=== PATIENT | female | born 1990 | race Caucasian/White ===

== ENCOUNTER 2017-02-24 21:46 | Emergency (ER) | payer OTHER | END 2017-02-25 02:19 | disposition left against medical advice (07) | LOC: ER 21:46 | DX: Z53.21 Procedure and treatment not carried out due to patient leaving prior to being seen by health care provider (principal) | CPT/HCPCS: 99211 ==

== ENCOUNTER 2017-03-10 22:46 | Emergency (ER) | payer OTHER ==
[2017-03-11 00:53] LABS: URINE BILIRUBIN NEGATIVE (NEGATIVE); URINE BLOOD NEGATIVE (NEGATIVE); URINE GLUCOSE (UA) NORMAL (NORMAL); URINE KETONE NEGATIVE (NEGATIVE); URINE LEUKOCYTE ESTERASE 1+ (NEGATIVE); URINE NITRATE NEGATIVE (NEGATIVE); URINE PROTEIN TRACE (NEGATIVE)
[2017-03-11 01:16] LABS: URINE AMORPHOUS SEDIMENT 1+; URINE BACTERIA 1+ (NONE SEEN); URINE RBC 0-5 /[HPF] (0-2); URINE WBC 0-5 /[HPF] (0-5)
== END 2017-03-11 02:25 | disposition home or self-care (01) ==
LOC: ER 22:46
PROVIDERS: Emergency Medicine
DX: J06.9 Acute upper respiratory infection, unspecified (principal); R10.31 Right lower quadrant pain; J02.9 Acute pharyngitis, unspecified; R05 Cough; F17.210 Nicotine dependence, cigarettes, uncomplicated; Z79.899 Other long term (current) drug therapy; Z79.3 Long term (current) use of hormonal contraceptives; Z88.0 Allergy status to penicillin; Z88.1 Allergy status to other antibiotic agents
CPT/HCPCS: 74150; 81001; 81025; 99070; 99283-25